=== PATIENT | female | born 1985 | race African-American/Black ===

== ENCOUNTER 2018-12-29 20:28 | Emergency (ER) | payer BC, OTHER ==
[~2018-12-29] VITALS: Ht 167.6 cm; Wt 90.7 kg
[2018-12-29] MEDS ORDERED: IBUPROFEN 600600 M1 PO (21:24)
[2018-12-29] MEDS ORDERED: HYDROCODONE-AP1 EAC6 PO (21:24)
[2018-12-29 22:29] VITALS: BP 123/74
== END 2018-12-29 22:30 | disposition home or self-care (01) ==
LOC: ER 20:28
DX: S52.591A Other fractures of lower end of right radius, initial encounter for closed fracture (principal); Z98.890 Other specified postprocedural states; W18.39XA Other fall on same level, initial encounter; Y93.51 Activity, roller skating (inline) and skateboarding; Y92.89 Other specified places as the place of occurrence of the external cause; Y99.8 Other external cause status

== ENCOUNTER 2020-10-17 10:52 | Emergency (ER) | payer BC, OTHER ==
[~2020-10-17] VITALS: Ht 162.6 cm; Wt 81.7 kg
[~2020-10-17 10:52] MED LIST: HYDROCODONE-AP1 EAC6 PO; IBUPROFEN 600600 M1 PO
[2020-10-17 11:49] LABS: ABSOLUTE NEUTROPHILS 9.9 thou/uL (1.4-8.2); BASOPHILS 0.6 % (0.0-2.0); EOSINOPHILS 0.5 % (0.0-3.0); HEMATOCRIT 36.9 % (37.0-47.0); HEMOGLOBIN 12.3 gm/dL (12.0-15.0); LYMPHOCYTES 15.4 % (24.0-44.0); MCH 30.1 pg (26.0-34.0); MCHC 33.3 g/dL (28.0-37.0); MCV 90.4 fL (80.0-100.0); MONOCYTES 5.2 % (1.0-8.0); PLATELET COUNT 238 thou/uL (150-400); POLYS 78.3 % (36.0-66.0); RBC 4.09 mil/uL (4.20-5.00); RDW 13.4 % (10.5-14.5); WBC 12.6 thou/uL (4.0-11.0)
[2020-10-17 12:01] LABS: CREATININE 0.8 mg/dL (0.6-1.0); POTASSIUM 3.8 mmol/L (3.5-5.1)
[2020-10-17] MEDS ORDERED: AUGMENTIN 875-1 EACH PO (14:18)
[2020-10-17] MEDS ORDERED: NORCO 5-325 TA1 EAC2 PO (14:18)
[2020-10-17 14:55] VITALS: BP 103/68
== END 2020-10-17 14:56 | disposition home or self-care (01) ==
LOC: ER 10:52
PROVIDERS: Physician Assistant
DX: K61.0 Anal abscess (principal); Z98.890 Other specified postprocedural states; Z79.899 Other long term (current) drug therapy